=== PATIENT | male | born 1980 | race Two or more races ===

== ENCOUNTER 2018-11-06 20:41 | Emergency (ER) | payer SELFPAY ==
[~2018-11-06] VITALS: Ht 190.5 cm; Wt 92.0 kg
[2018-11-06] MEDS ORDERED: SODIUM CHLORIDE 0.9% 1,000 ML IV SCH (23:17)
[2018-11-06] MEDS ORDERED: DEXAMETHASONE 10 MG/ML VIAL IV ONE (23:30)
[2018-11-06] MEDS ORDERED: DIPHENHYDRAMINE 50MG/ML VIAL IV ONE (23:30)
[2018-11-06 23:31] LABS: HEMATOCRIT. 50.2 % (42.0-52.0); HEMOGLOBIN. 17.2 g/dL (14.0-18.0); MEAN CORPUSCULAR HEMOGLOBIN 30.2 pg (28.0-32.0); MEAN CORPUSCULAR VOLUME 88.5 fL (80.0-94.0); MEAN PLATELET VOLUME 9.4 fl (7.4-10.4); PLATELET 217 x1000/uL (130-400); RED BLOOD CELL COUNT 5.68 mill/uL (4.7-6.1); RED CELL DISTRIBUTION WIDTH 13.1 % (11.6-14.6)
[2018-11-06 23:36] LABS: CHLORIDE 106 mEq/L (98-107)
[2018-11-07 00:06] VITALS: BP 166/82
[2018-11-07 01:23] LABS: PLATELET ESTIMATE NORMAL
== END 2018-11-07 00:43 | disposition home or self-care (01) ==
LOC: ER 20:41
DX: T78.40XA Allergy, unspecified, initial encounter (principal); X58.XXXA Exposure to other specified factors, initial encounter; Z90.89 Acquired absence of other organs
CPT/HCPCS: 36415; 80053; 85025; 96374; 96375; 99283; J1100; J1200